=== PATIENT | male | born 1970 | race Caucasian/White ===

== ENCOUNTER 2016-07-22 19:55 | Emergency (ER) | payer BC ==
--- NOTE | 2016-07-22 20:43 | ERNOTE ---
Chest Pain/Cardiac HPI Date of Service: 07/22/16 Chief Complaint: Chest Pain Time Seen by Provider: 07/22/16 20:29 Source: patient, RN notes reviewed Exam Limitations: no limitations Immunizations: IMMUNIZATION HX Immunizations Up to Date Yes History of Influenza Vaccine Yes Hx Pneumococcal Vaccination No Allergies/Adverse Reactions: Allergies acetaminophen [From Percocet] Adverse Reaction (Intermediate, Verified 07/07/15 08:39) ua retention requiring bourgeois for several days oxycodone HCl [From Percocet] Adverse Reaction (Intermediate, Verified 07/07/15 08:39) ua retention requiring bourgeois for several days Home Medications: HOME MEDICATIONS Multivitamin with Minerals [Multiple Vitamin] 1 each PO DAILY 06/04/12 [Last Taken 06/13/15] Venlafaxine HCl [Effexor Xr] 150 mg PO DAILY 06/04/12 [Last Taken 06/13/15] Pantoprazole Sodium [Protonix] 40 mg PO DAILY 03/28/14 [Last Taken 06/13/15] Cyclobenzaprine HCl [Flexeril] 10 mg PO TID PRN 07/22/16 [Last Taken Unknown] HYDROcodone/ACETAMINOPHEN [[place] 5-325] 1 tab PO Q4H PRN 07/22/16 [Last Taken Unknown] Meloxicam 7.5 mg PO DAILY 07/22/16 [Last Taken Unknown] Mupirocin [Centany] 30 gm TP DAILY 07/22/16 [Last Taken Unknown] Naproxen Sodium 220 mg PO TID 07/22/16 [Last Taken Unknown] Triamcinolone Acetonide [Kenalog 0.1%] 1 appl TP BID 07/22/16 [Last Taken Unknown] Narrative: 45 y/o male ambulatory to the ED for chest pain that began today. The pain has been sharp and intermittent in his left chest. It lasts only a few seconds at a time. It does not seem to be related to activity. The patient is on [place] for chronic back pain and meloxicam for elbow bursitis. He is also taking Naproxen. Timing: intermittent Severity/Quality: stabbing Location: left chest Chest Pain Radiation: no radiation Activities at Onset: none Modifying Factors - Improves: Present: nothing Modifying Factors - Worsens: Present: nothing Nitro Today/Relief: no nitro taken today Aspirin Treatment Today: no aspirin today Review of Systems - Review of Systems Constitutional: Absent: fever, chills, malaise EYE: Present: no symptoms reported ENT: Present: nose congestion, sore throat. Absent: ear pain Respiratory: Absent: shortness of breath, cough Cardiology: Present: chest pain. Absent: palpitations, syncope Gastrointestinal/Abdominal: Absent: nausea, vomiting, abdominal pain Genitourinary: Present: no symptoms reported Musculoskeletal: Present: back pain, joint pain, joint swelling Skin: Present: rash. Absent: lumps, change in color Neurological: Absent: headache, dizziness/light-headedness Endocrine: Present: no symptoms reported Hematologic/Lymphatic: Present: no symptoms reported Psych: Present: no symptoms reported - Patient's Past Medical History Patient History - Medical: Depression, GERD Patient History - Cardiac/Respiratory: Hypertension Patient History - Cancer: No Hx of Cancer Patient History - Surgical Procedures: Other Patient History - Other: None - Family History Mother Family History - Medical: Diabetes Type 2 - Social History Living Situations: spouse Abuse History: No History of abuse Psych History: Hx of Depression, Current tx/ever been on anti-depressants or anti-anxiety meds Smoking Status: Former smoker Have you smoked in the past 12 months: No Do you dip or chew tobacco: Yes Alcohol Use: none Drug Use: none - Immunizations Immunizations Up to Date: Yes Hx Pneumococcal Vaccination: No History of Influenza Vaccine: Yes Physical Exam - Physical Exam General Appearance: Present: wd/wn, alert, no apparent distress, anxious, obese Eye Exam: Normal inspection: bilateral Ears, Nose, Throat: Present: normal ENT inspection, hearing grossly normal, normal pharynx Neck: Present: normal inspection, nontender, supple Respiratory: Present: no respiratory distress, normal breath sounds, no accessory muscle use, chest nontender, lungs clear Cardiovascular/Chest: Present: regular rate, rhythm, no murmur, normal peripheral pulses Neurological Exam: Present: alert, oriented, normal mood/affect, no motor/ sensory deficits Skin Exam: Present: normal color, warm/dry ED Progress - Results and Orders Patient's Lab Results:: I have reviewed the patient's lab results. - Vital Signs Patient's Vital Signs:: I have reviewed the patient's vital signs. Vital Signs: Vital Signs 07/22/16 07/22/16 20:00 20:14 Temperature 35.7 C L Pulse Rate 91 91 Respiratory 18 Rate Blood Pressure 104/101 O2 Sat by Pulse 96 Oximetry - EKG EKG: NSR, premature ventricular contraction EKG read: Interp. by me - X-Ray X-Ray #1 X-Ray: chest Interpretation: Interp. by me X-ray Comments: No acute cardiopulmonary process noted - Progress/Reassessment Chief Complaint: Chest Pain Progress:: Unchanged Progress Note-Subjective: 07/22/16 21:52 Patient pain-free at discharge, labs/xray/EKG unremarkable, discussed return if pain worsens or becomes persistent Departure - Departure Clinical Impression: Chest pain, non-cardiac Disposition: Home Follow Up Needed Condition: Good Instructions: Chest Wall Pain, [id number] Additional Instructions: Continue your current medications - EXCEPT - take either the meloxicam or the naproxen, not both Return if symptoms worsen Referrals: KAYY FORD [Primary Care Provider] -
[2016-07-22 20:53] LABS: Hematocrit 42.2 % (42.0-52.0); Mean Cell Volume 91.9 fl (78-100); Mean Corpuscular Hemoglobin 32.7 pg (27-31); Mean Corpuscular Hgb Conc 35.5 g/dl (32-36); Mean Platelet Volume 9.9 fl (6.0-9.5); Neutrophil # 3.4 K/mm3 (1.3-6.0); Neutrophil % 46.5 % (42-75.0); Platelet Count 212 K/mm3 (150-450); Red Blood Count 4.59 M/mm3 (4.7-6.0); Red Cell Distribution Width 12.6 % (11.5-14.0); White Blood Count 7.3 K/mm3 (4.0-10.5)
--- OUTSIDE RECORDS SUMMARY | 2016-07-22 21:04 | XMS REPORT | Continuity of Care Document ---
:1970 Author Organization [facility] ([facility]) Address [address] [place] [address] Phone [phone] Care Team Providers Name Role Phone Ganesh Michaels Primary Care Provider [phone] Source Comments This disclosure is being made pursuant to the Care Everywhere program, applicable federal and state laws, and may not contain all informaitonavailable regarding this patient.[facility] ([facility]) Active Allergies and Adverse Reactions Allergen Noted Date Severity Reactions Comments No Known Allergies 11/22/2011 NO REACTION Current Medications Prescription Sig. Disp. Refills Start Date End Date Status atenolol 50 mg tablet Take 50 mg by mouth Active daily. venlafaxine (EFFEXOR Take 150 mg by mouth Active XR) 150 mg XR capsule daily. esomeprazole (NEXIUM) Take 40 mg by mouth Active 40 mg EC capsule daily. multivitamin tablet Take 1 Tab by mouth Active daily. fexofenadine Take 180 mg by mouth Active (GIAN) 180 mg daily. tablet fluticasone (FLONASE) use 2 Sprays into Active 50 mcg/Actuation the nose daily. nasal spray sildenafil (VIAGRA) Take 1 Tab by mouth 6 Tab 3 04/25/2012 Active 100 mg tablet as needed. Take 1 hour prior to sexual activity.No more than once daily Indications: ERECTILE DYSFUNCTION testosterone apply 40 mg on the 1 Bottle 5 06/06/2012 Active (FORTESTA) 10 mg/0.5 skin daily. gram per Actuation Indications: MALE GlPm HYPOGONADISM, To replace Androgel starting 05/27/2012 Active Problems Problem Noted Date Male hypogonadism 11/23/2011 Social History Tobacco Use Types Packs/Day Years Used Date Former Smoker Quit: 05/27/1996 Smokeless Tobacco: Current User Chew Tobacco Cessation:Counseling Given: No Comments:Uses 1 can/week Alcohol Use Drinks/Week oz/Week Comments No Last Filed Vital Signs Vital Sign Reading Time Taken Blood Pressure 137/76 10/10/2012 11:00 AM CDT Pulse 87 10/10/2012 11:00 AM CDT Temperature 36.8 C (98.3 F) 10/10/2012 11:00 AM CDT Respiratory Rate 18 10/10/2012 11:00 AM CDT Height 1.803 m (5' 11") 10/10/2012 11:00 AM CDT Weight 119 kg (262 lb 5.6 oz) 10/10/2012 11:00 AM CDT Body Mass Index 36.61 10/10/2012 11:00 AM CDT Oxygen Saturation 98% 10/10/2012 11:00 AM CDT Plan of Care Health Maintenance Due Date Last Done Comments Hepatitis B Vaccine (1 of 3 - Primary Series) 1970 Tdap Vaccine 1980 Lipid Disorder Screening 10/29/1987 MMR Vaccine 10/29/1987 Td Vaccine 10/29/1987 Influenza Vaccine: Seasonal (#1) 12/26/2015 Results from Last 3 Months Not on file
[2016-07-22 21:13] LABS: ALT 47 U/L (19-67); AST 25 U/L (0-48); Albumin * 4.2 gm/dl (3.4-5.0); Alkaline Phosphatase * 76 U/L (50-170); Anion Gap 14.3 mmol/L (6.8-13.8); BUN/Creatinine Ratio 12.5 (9.0-21.6); Bilirubin, Total 0.7 mg/dL (0.0-1.1); Blood Urea Nitrogen 12 mg/dL (6-23); Ca. Corrected For Albumin 8.4 mg/dL (8.4-10.2); Calcium * 8.9 mg/dL (7.9-10.9); Carbon Dioxide 26.6 mmol/L (24-32.6); Chloride 105 mmol/L (97-106); Glucose * 102 mg/dL (70-110); Potassium 3.9 mmol/L (3.4-4.6); Sodium 142 mmol/L (132-142); Total Protein 7.7 gm/dL (6.2-8.2)
[2016-07-22 21:15] LABS: Troponin I Less than 0.017 ng/ml (0.00-0.10)
[2016-07-22 21:47] VITALS: BP 142/98
== END 2016-07-22 21:52 | disposition home or self-care (01) ==
LOC: ER 19:55
DX: R07.89 Other chest pain (principal); Z87.891 Personal history of nicotine dependence

== ENCOUNTER 2017-02-01 19:56 | Emergency (ER) | payer BC ==
--- NOTE | 2017-02-01 20:47 | ERNOTE ---
Abdominal HPI - Narrative Date of Service: 02/01/17 - General Chief Complaint: Abdominal Pain Time Seen by Provider: 02/01/17 20:17 Source: patient, family Exam Limitations: no limitations - Immun/Allergies/Home Medications Immunizatons: IMMUNIZATION HX Immunizations Up to Date Yes History of Influenza Vaccine Yes Hx Pneumococcal Vaccination No Allergies/Adverse Reactions: Allergies oxycodone HCl [From Percocet] Adverse Reaction (Intermediate, Verified 07/07/15 08:39) ua retention requiring bourgeois for several days Home Medications: HOME MEDICATIONS Atorvastatin Calcium [Lipitor] 10 mg PO HS 02/01/17 [Last Taken Unknown] HYDROcodone/ACETAMINOPHEN [[place] 5-325] 1 tab PO TID 02/01/17 [Last Taken Unknown] Lisinopril [Prinivil] 10 mg PO DAILY 02/01/17 [Last Taken Unknown] Nabumetone 750 mg PO BID 02/01/17 [Last Taken Unknown] Pantoprazole Sodium 40 mg PO DAILY 02/01/17 [Last Taken Unknown] Venlafaxine HCl 75 mg PO BID 02/01/17 [Last Taken Unknown] - History of Present Illness Narrative: This is a 46-year-old male who comes to the emergency department with very vague symptoms. Primarily he complains of a diffuse abdominal pain which has been present for 2 weeks. It has not really changed in severity. Nothing seems to make it better, but the patient says occasionally when he eats it gets worse. This does not happen with every meal. The patient also says that he has some nausea but has not had vomiting. He says that when he stands up he sometimes gets lightheaded. He was started on several new blood pressure medicines recently including lisinopril. rest. In general he has decreased energy level. He denies chest pain or shortness of breath. He denies urinary symptoms. He denies constipation or diarrhea. Review of Systems - Review of Systems Constitutional: Present: malaise EYE: Present: no symptoms reported ENT: Present: no symptoms reported Respiratory: Present: no symptoms reported Cardiology: Present: no symptoms reported Gastrointestinal/Abdominal: Present: See HPI Genitourinary: Present: no symptoms reported Musculoskeletal: Present: no symptoms reported Skin: Present: no symptoms reported Neurological: Present: no symptoms reported Endocrine: Present: no symptoms reported Hematologic/Lymphatic: Present: no symptoms reported Psych: Present: no symptoms reported All Other Systems: All systems neg except as marked - Patient's Past Medical History Patient History - Medical: Depression, GERD Patient History - Cardiac/Respiratory: Hypertension, Hyperlipidemia Patient History - Cancer: No Hx of Cancer Patient History - Surgical Procedures: Orthopedic Patient History - Other: None - Family History Mother Family History - Medical: Diabetes Type 2 - Social History Living Situations: home Abuse History: No History of abuse Psych History: Hx of Depression, Current tx/ever been on anti-depressants or anti-anxiety meds Smoking Status: Former smoker Do you dip or chew tobacco: Yes Alcohol Use: none Drug Use: none - Immunizations Immunizations Up to Date: Yes Hx Pneumococcal Vaccination: No History of Influenza Vaccine: Yes Physical Exam - Physical Exam General Appearance: Present: wd/wn, alert, no apparent distress Head Exam: Present: normal inspection, no evidence of injury Eye Exam: Normal inspection: bilateral, PERRL: bilateral, EOMI: bilateral Ears, Nose, Throat: Present: normal ENT inspection, normal pharynx Neck: Present: normal inspection, nontender Respiratory: Present: no respiratory distress, normal breath sounds, no accessory muscle use, lungs clear Cardiovascular/Chest: Present: regular rate, rhythm, no murmur, normal peripheral pulses Gastrointestinal/Abdominal: Present: normal bowel sounds, nontender, nondistended, soft Back Exam: Present: normal inspection, normal range of motion, no CVA tenderness , no vertebral tenderness Extremity Exam: Present: normal inspection, non-tender, normal range of motion, no edema Neurological Exam: Present: alert, oriented, normal mood/affect, no motor/ sensory deficits Skin Exam: Present: normal color, warm/dry Lymphatic Exam: Present: no adenopathy ED Progress - Results and Orders Patient's Lab Results:: I have reviewed the patient's lab results. - Vital Signs Patient's Vital Signs:: I have reviewed the patient's vital signs. Vital Signs: Vital Signs 02/01/17 20:02 Temperature 36.4 C L Pulse Rate 107 H Respiratory 20 Rate Blood Pressure 156/97 O2 Sat by Pulse 95 Oximetry - EKG EKG: NSR, other - borderline sinus tach at 100. One PVC. No ST segment deviation. T waves are normal. No acute ischemic changes. - Progress/Reassessment Chief Complaint: Abdominal Pain Plan - Plan Plan: I discussed with the patient that none of the labs or studies demonstrate any abnormality. He has had the symptoms for 2 weeks. I suspect that the cause of his symptoms is a nonemergent cause which is more symptomatic and annoying rather than serious. He has an appointment with his doctor on Saturday. He is going to keep that appointment. He will return for new or worrisome symptoms. Departure - Departure Clinical Impression: Dizziness Disposition: Home self-care Condition: Stable Instructions: Vertigo, Kmek-of-Cmlg Additional Instructions: As we discussed, the labs and studies done here in the emergency department are normal. This does not mean that there is nothing wrong with you, it only means that I have not identified any emergency condition. Would cause her symptoms. I want you to keep the appointment that you have on Saturday with her family doctor. Certainly if you develop any new concerning symptoms or what you to return to the emergency department sooner. Referrals: BRANDEE MCBRIDE [Primary Care Provider] -
[2017-02-01 20:52] LABS: Hematocrit 41.3 % (42.0-52.0); Hemoglobin 14.7 gm/dL (13.5-18.0); Mean Cell Volume 92.2 fl (78-100); Mean Corpuscular Hemoglobin 32.8 pg (27-31); Mean Corpuscular Hgb Conc 35.6 g/dl (32-36); Mean Platelet Volume 10.2 fl (6.0-9.5); Neutrophil # 2.9 K/mm3 (1.3-6.0); Neutrophil % 48.6 % (42-75.0); Platelet Count 203 K/mm3 (150-450); Red Blood Count 4.48 M/mm3 (4.7-6.0); Red Cell Distribution Width 12.6 % (11.5-14.0); White Blood Count 5.9 K/mm3 (4.0-10.5)
[2017-02-01 21:10] LABS: ALT 40 U/L (19-67); AST 21 U/L (0-48); Albumin * 4.1 gm/dl (3.4-5.0); Alkaline Phosphatase * 88 U/L (50-170); Anion Gap 16.5 mmol/L (6.8-13.8); BUN/Creatinine Ratio 10.6 (9.0-21.6); Bilirubin, Total 0.8 mg/dL (0.0-1.1); Blood Urea Nitrogen 11 mg/dL (6-23); Ca. Corrected For Albumin 8.1 mg/dL (8.4-10.2); Calcium * 8.5 mg/dL (7.9-10.9); Carbon Dioxide 24.1 mmol/L (24-32.6); Chloride 103 mmol/L (97-106); Glucose * 183 mg/dL (70-110); Lipase 312 U/L (73-393); Potassium 3.6 mmol/L (3.4-4.6); Sodium 140 mmol/L (132-142); Total Protein 7.2 gm/dL (6.2-8.2)
[2017-02-01 21:11] LABS: Troponin I Less than 0.017 ng/ml (0.00-0.10)
[2017-02-02 02:51] VITALS: BP 112/75
== END 2017-02-01 22:40 | disposition home or self-care (01) ==
LOC: ER 19:56
DX: R42 Dizziness and giddiness (principal); K21.9 Gastro-esophageal reflux disease without esophagitis; I10 Essential (primary) hypertension; E78.5 Hyperlipidemia, unspecified; F32.89 Other specified depressive episodes; Z72.0 Tobacco use

== ENCOUNTER 2017-02-15 12:38 | Emergency (ER) | payer BC ==
--- NOTE | 2017-02-15 13:25 | ERNOTE ---
Abdominal HPI - Narrative Date of Service: 02/15/17 - General Chief Complaint: Constipation Time Seen by Provider: 02/15/17 13:15 Source: patient Exam Limitations: no limitations - Immun/Allergies/Home Medications Immunizatons: IMMUNIZATION HX Immunizations Up to Date Yes History of Influenza Vaccine Yes Hx Pneumococcal Vaccination No Allergies/Adverse Reactions: Allergies oxycodone HCl [From Percocet] Adverse Reaction (Intermediate, Verified 07/07/15 08:39) ua retention requiring bourgeois for several days Home Medications: HOME MEDICATIONS Atorvastatin Calcium [Lipitor] 10 mg PO HS 02/01/17 [Last Taken Unknown] HYDROcodone/ACETAMINOPHEN [[place] 5-325] 1 tab PO QID 02/01/17 [Last Taken Unknown] Lisinopril [Prinivil] 10 mg PO DAILY 02/01/17 [Last Taken Unknown] Nabumetone 750 mg PO BID 02/01/17 [Last Taken Unknown] Pantoprazole Sodium 40 mg PO DAILY 02/01/17 [Last Taken Unknown] Venlafaxine HCl 75 mg PO BID 02/01/17 [Last Taken Unknown] Bisacodyl [Dulcolax Suppository] 10 mg RC DAILY PRN #3 supp.rect 02/15/17 [Last Taken Unknown] Docusate Sodium [Dok] 100 mg PO BID #60 tablet 02/15/17 [Last Taken Unknown] Naloxegol Oxalate [Movantik] 25 mg PO DAILY 02/15/17 [Last Taken Unknown] - Pain Score Pain Score #1 Pain Score: 5 Abdominal Pain Onset Location: epigastric - History of Present Illness Narrative: 46yo, M, presents to ER for "constipation," which has been present for a few weeks. He reports the pain clinic increased his chronic pain medication hydocodone/acet 5/325mg from TID to QID 1 month ago. He was seen by the pain clinic on 02/12/17 and discussed his constipation concerns with them and he was started on Movantik 25mg once daily x3 days. Last pm had small bm that was "carol ann runny", then later had an episode of vomiting, which had the appearance of food. He notes prior to stool yesterday, stools had been very hard. Today he continues to have nausea, abd cramping and sensation that he needs to have a BM. Modifying Factors - (Improves): Present: vomiting Modifying Factors - (Worsens): Present: eating Associated Symptoms: Present: nausea, vomiting - x1 episode. Absent: chest pain , diaphoresis, fever/chills, loss of appetite, shortness of breath, swelling/ mass in abdomen, syncope, weakness Review of Systems - Review of Systems Constitutional: Absent: fever, chills, fatigue, malaise Respiratory: Absent: shortness of breath, cough Cardiology: Absent: chest pain, palpitations, syncope Gastrointestinal/Abdominal: Present: nausea, vomiting, constipation, abdominal pain - epigastric. Absent: diarrhea Genitourinary: Absent: frequency, pain, dysuria, hematuria Skin: Absent: rash - Patient's Past Medical History Patient History - Medical: Arthritis, Chronic Pain, Depression, GERD Patient History - Cardiac/Respiratory: Hypertension, Hyperlipidemia Patient History - Cancer: No Hx of Cancer Patient History - Surgical Procedures: Orthopedic Patient History - Other: None - Family History Mother Family History - Medical: Diabetes Type 2 - Social History Living Situations: home Abuse History: No History of abuse Psych History: Hx of Anxiety, Hx of Depression, Current tx/ever been on anti- depressants or anti-anxiety meds Smoking Status: Never smoker Have you smoked in the past 12 months: No Do you dip or chew tobacco: No Alcohol Use: rarely Drug Use: none - Immunizations Immunizations Up to Date: Yes Hx Pneumococcal Vaccination: No History of Influenza Vaccine: Yes Physical Exam - Physical Exam General Appearance: Present: wd/wn, alert, no apparent distress Respiratory: Present: no respiratory distress, normal breath sounds, chest nontender. Absent: rales, rhonchi, wheezing Cardiovascular/Chest: Present: regular rate, rhythm, no murmur Gastrointestinal/Abdominal: Present: normal bowel sounds, nondistended, soft, tenderness - mild diffuse worse to epigastric region. Absent: rebound, mass Neurological Exam: Present: alert, oriented Skin Exam: Present: normal color, warm/dry ED Progress - Date and Time Seen: Date and Time: 02/15/17 14:43 Reviewed lab and xray results with pt. Constipation appears to be related to pain medication usage. He will start treatment when he gets home today. Reviewed red flags and he will return if situation worsens or does not improve. - Results and Orders Patient's Lab Results:: I have reviewed the patient's lab results. - Vital Signs Patient's Vital Signs:: I have reviewed the patient's vital signs. Vital Signs: Vital Signs 02/15/17 02/15/17 12:43 12:55 Temperature 36.9 C Pulse Rate 78 84 Respiratory 16 Rate Blood Pressure 151/98 125/87 O2 Sat by Pulse 97 98 Oximetry - X-Ray X-Ray #1 X-Ray: abdomen Interpretation: Reviewed by me X-ray Comments: [facility] PATIENT RADIOLOGY STUDY REPORT Patient Patient Name:PAMELA MOSELEY Date: 1970 Sex: M Order Number: [id number] Unique Exam ID: [id number] Exam Requested: [id number] - Abdomen Flat W/ Upright * Date Scheduled: 02-15-2017 01:31 PM Study Priority: Requesting Service: Requesting Physician: Lindsey Benitez Reason for Exam: ABD CRAMPING, CONSTIPATION Radiological Report : [address] [address] NAME: PAMELA MOSELEY : 1970 MR #: [id number] CC: Graciela Lora DO LOC: ER ADM DATE: X-RAY REPORT RAD/Abdomen Flat W/ Upright * Exam Date: 02/15/2017 13:31 Ordering Physician: Lindsey Benitez History: ABD CRAMPING, CONSTIPATION . Additional history provided by the technologist: Right upper quadrant pain. Nausea and vomiting x2 weeks. Technique: Abdominal series (6 views) Comparison: Prior exams, most recent CT is dated November 24, 2013. Correlation is made with ultrasound dated February 08, 2017. Findings: Lung bases are clear. Moderate stool retention. No evidence of bowel obstruction. No pneumoperitoneum. No signs of mass or mass effect. No obvious urolithiasis. Degenerative changes. Impression: Stool retention with a nonobstructed bowel gas pattern. Electronically signed by Prasanth Bentley D.O.. Prasanth Bentley DO Dict: 02/15/17 1408 Typed: 02/15/17 1408/ 02/15/17 1411 02/15/17 1414 , Approved by: Prasanth Bentley Approval Date: 02-15-2017 Approval Time: 02:08 PM THIS REPORT WAS RECEIVED FROM THE [facility] [employer] [facility] - Progress/Reassessment Chief Complaint: Constipation Departure Clinical Impression: Constipation Qualifiers: Constipation type: drug induced constipation Qualified Code(s): K59.03 - Drug induced constipation - Departure Disposition: Home self-care Condition: Good Instructions: Constipation, Adult, [id number] Additional Instructions: Increase fluid intake Start suppository when you get home, then daily for 3 days Take first dose of Docusate sodium when you get home and second dose before bed Return to ER if symptoms worsen, do not improve or you develop fever, increased abdominal pain or swelling of abdomin Referrals: Graciela Lora DO [Primary Care Provider] - Prescriptions: Bisacodyl [Dulcolax Suppository] 10 mg RC DAILY PRN #3 supp.rect PRN Reason: Constipation Docusate Sodium [Dok] 100 mg PO BID #60 tablet
[2017-02-15 13:48] LABS: Hematocrit 41.6 % (42.0-52.0); Hemoglobin 14.7 gm/dL (13.5-18.0); Mean Cell Volume 92.2 fl (78-100); Mean Corpuscular Hemoglobin 32.6 pg (27-31); Mean Corpuscular Hgb Conc 35.3 g/dl (32-36); Mean Platelet Volume 10.5 fl (6.0-9.5); Neutrophil # 3.4 K/mm3 (1.3-6.0); Neutrophil % 57.4 % (42-75.0); Platelet Count 211 K/mm3 (150-450); Red Blood Count 4.51 M/mm3 (4.7-6.0); Red Cell Distribution Width 12.7 % (11.5-14.0)
[2017-02-15 14:00] LABS: ALT 45 U/L (19-67); AST 27 U/L (0-48); Albumin * 4.3 gm/dl (3.4-5.0); Alkaline Phosphatase * 78 U/L (50-170); Amylase * 59 U/L (25-115); Anion Gap 16.2 mmol/L (6.8-13.8); BUN/Creatinine Ratio 10.1 (9.0-21.6); Bilirubin, Total 0.9 mg/dL (0.0-1.1); Blood Urea Nitrogen 11 mg/dL (6-23); Calcium * 8.6 mg/dL (7.9-10.9); Carbon Dioxide 25.6 mmol/L (24-32.6); Chloride 104 mmol/L (97-106); Glucose * 117 mg/dL (70-110); Lipase 229 U/L (73-393); Potassium 3.8 mmol/L (3.4-4.6); Sodium 142 mmol/L (132-142); Total Protein 7.4 gm/dL (6.2-8.2)
[2017-02-15 14:40] VITALS: BP 120/80
== END 2017-02-15 14:46 | disposition home or self-care (01) ==
LOC: ER 12:38
DX: K59.03 Drug induced constipation (principal); E78.5 Hyperlipidemia, unspecified; K21.9 Gastro-esophageal reflux disease without esophagitis; I10 Essential (primary) hypertension; M19.90 Unspecified osteoarthritis, unspecified site; G89.29 Other chronic pain

== ENCOUNTER 2017-02-17 11:13 | Emergency (ER) | payer BC ==
[2017-02-17 11:33] VITALS: BP 151/63
--- NOTE | 2017-02-17 11:51 | ERNOTE ---
Abdominal HPI - Narrative Date of Service: 02/17/17 - General Chief Complaint: Constipation Time Seen by Provider: 02/17/17 11:50 Source: patient Exam Limitations: no limitations - Immun/Allergies/Home Medications Immunizatons: IMMUNIZATION HX Immunizations Up to Date Yes History of Influenza Vaccine Yes Hx Pneumococcal Vaccination No Allergies/Adverse Reactions: Allergies oxycodone HCl [From Percocet] Adverse Reaction (Intermediate, Verified 02/17/17 11:33) ua retention requiring bourgeois for several days Home Medications: HOME MEDICATIONS Atorvastatin Calcium [Lipitor] 10 mg PO HS 02/01/17 [Last Taken Unknown] HYDROcodone/ACETAMINOPHEN [[place] 5-325] 1 tab PO QID 02/01/17 [Last Taken Unknown] Lisinopril [Prinivil] 10 mg PO DAILY 02/01/17 [Last Taken Unknown] Nabumetone 750 mg PO BID 02/01/17 [Last Taken Unknown] Pantoprazole Sodium 40 mg PO DAILY 02/01/17 [Last Taken Unknown] Venlafaxine HCl 75 mg PO BID 02/01/17 [Last Taken Unknown] Bisacodyl [Dulcolax Suppository] 10 mg RC DAILY PRN #3 supp.rect 02/15/17 [Last Taken Unknown] Docusate Sodium [Dok] 100 mg PO BID #60 tablet 02/15/17 [Last Taken Unknown] Naloxegol Oxalate [Movantik] 25 mg PO DAILY 02/15/17 [Last Taken Unknown] - History of Present Illness Narrative: pt presents with constipation. He was here 3 days ago and was given a stool softener and gave himself an enema but has had minimal results. He complains of generalized pain, no fever or chills, mild nausea. Pt is on naurcotic pain medication for chronic back pain x 1.5 yrs Date (Duration): 02/12/17 Time (Timing): 01:00 Timing: constant, getting worse Quality: moderate, aching, fullness Activities at Onset: none Modifying Factors - (Worsens): Present: eating Associated Symptoms: Present: nausea Prior Abdominal Problems: Present: none Prior Treatment: Present: recently seen, treated by physician Review of Systems - Narrative Narrative: see HPI - Review of Systems Constitutional: Present: no symptoms reported EYE: Present: no symptoms reported ENT: Present: no symptoms reported Respiratory: Present: no symptoms reported Cardiology: Present: no symptoms reported Gastrointestinal/Abdominal: Present: no symptoms reported Genitourinary: Present: no symptoms reported Musculoskeletal: Present: no symptoms reported Skin: Present: no symptoms reported Neurological: Present: no symptoms reported Endocrine: Present: no symptoms reported Hematologic/Lymphatic: Present: no symptoms reported Psych: Present: no symptoms reported All Other Systems: All systems neg except as marked - Patient's Past Medical History Patient History - Medical: Arthritis, Chronic Pain, Depression, GERD Patient History - Cardiac/Respiratory: Hypertension, Hyperlipidemia Patient History - Cancer: No Hx of Cancer Patient History - Surgical Procedures: Orthopedic Patient History - Other: None - Family History Mother Family History - Medical: Diabetes Type 2 - Social History Living Situations: home Abuse History: No History of abuse Psych History: Hx of Anxiety, Hx of Depression, Current tx/ever been on anti- depressants or anti-anxiety meds Smoking Status: Never smoker Have you smoked in the past 12 months: No Alcohol Use: rarely Drug Use: none - Immunizations Immunizations Up to Date: Yes Hx Pneumococcal Vaccination: No History of Influenza Vaccine: Yes Physical Exam - Physical Exam General Appearance: Present: alert, mild distress, obese Head Exam: Present: normal inspection Eye Exam: Normal inspection: bilateral Ears, Nose, Throat: Present: normal ENT inspection Neck: Present: normal inspection Respiratory: Present: no respiratory distress Cardiovascular/Chest: Present: regular rate, rhythm Gastrointestinal/Abdominal: Present: normal bowel sounds, soft, no organomegaly , tenderness - mild diffuse. Absent: nondistended Back Exam: Present: normal inspection Extremity Exam: Present: normal inspection Neurological Exam: Present: alert, oriented Skin Exam: Present: normal color Lymphatic Exam: Present: no adenopathy ED Progress - Results and Orders Patient's Lab Results:: I have reviewed the patient's lab results. - Vital Signs Vital Signs: Vital Signs 02/17/17 11:31 Temperature 36.7 C Pulse Rate 76 Respiratory 14 Rate Blood Pressure 151/63 O2 Sat by Pulse 97 Oximetry - Progress/Reassessment Chief Complaint: Constipation Departure Clinical Impression: Constipation due to pain medication - Departure Disposition: Home self-care Condition: Good Additional Instructions: magnesium citrate 1/2 bottle every 3 days, dulcolax every 3-5 days Referrals: Graciela Lora DO [Primary Care Provider] -
[2017-02-17] MEDS ORDERED: MAGNESIUM CITRATE 300 ML BTL PO ONE (12:17)
[2017-02-17] MEDS ORDERED: MAGNESIUM CITRATE 300 ML BTL ONE (12:17)
[2017-02-17] MEDS ORDERED: ONDANSETRON HCL 8 MG TABLET PO ONE (12:18)
[2017-02-17] MEDS ORDERED: ONDANSETRON 4 MG TAB.RAPDIS ONE (12:19)
== END 2017-02-17 13:43 | disposition home or self-care (01) ==
LOC: ER 11:13
DX: K59.03 Drug induced constipation (principal); M19.90 Unspecified osteoarthritis, unspecified site; G89.29 Other chronic pain; K21.9 Gastro-esophageal reflux disease without esophagitis; I10 Essential (primary) hypertension; E78.5 Hyperlipidemia, unspecified; F32.89 Other specified depressive episodes